=== PATIENT | male | born 2000 | race Caucasian/White ===

== ENCOUNTER 2021-05-03 17:47 | Emergency (ER) | payer OTHER, SELFPAY ==
[2021-05-03 17:56] VITALS: BP 139/76; PULSE 93; RESP 18; TEMP 36.7; O2SAT 97
--- NOTE | 2021-05-03 18:18 | W.ED.GENAD ---
Discharge Plan Disposition Patient Disposition: HOME Condition: Stable Discharge Details Clinical Impression: Rash Primary Care Provider: Unknown,Unknown ED Provider: Clifford Fallon Home Meds and New Rx's Prescriptions: No Action No Known Home Meds RF: 0 Discharge Instructions Instructions: Acute Rash (ED) Additional Instructions: Your rash does not look infectious and is very localized. As we discussed you drove yourself here and I do not want to give you Benadryl which may cause drowsiness. I recommend after you are discharged from the ER, going to the pharmacy and picking up [id number] Benadryl and 1% hydrocortisone cream taking as directed. Please watch for new or worsening symptoms and return to the ER for any concerns. If symptoms were to persist or worsen, oral steroids may eventually be indicated. Discharge Data Discharge Date/Time-TO BE ENTERED AT DEPARTURE: 05/03/21 18:33 Medical Decision Making 21-year-old gentleman presents with a rash to his left forearm after being outside all day. Clinically he appears well, nontoxic. He has not taken any medication for his symptoms. Appears to be a mild local nonspecific contact dermatitis. No signs of infection. Patient drove himself here to the ER today. Recommend that he takes Benadryl once he gets home, 50 mg, will not provide a dose now given he drove and this may cause drowsiness. Also recommended 1% [id number] hydrocortisone cream. Discussed that if symptoms are worsening over the next couple of days with [id number] medications and oral steroids may be indicated. Patient is agreeable with this plan and has no additional questions or concerns. Standard discharge and return precautions This documentation was generated using [employer] dictation system, please disregard any oddities of phrase or misspellings. HPI General Mode of arrival: ambulatory. Date/Time Provider Initiated Documentation: 05/03/21 17:59. Limitations to Documentation: no limitations. Information obtained by: patient. HPI Narrative: This is a 21-year-old male, no significant past sickle history, presenting to the ER complaining of a rash on his left forearm. Patient states that he was outside most of the day in the sun and did get a sunburn to his bilateral upper extremities. He then noticed a slightly itchy rash to his left forearm which appears unrelated to his sunburn. It is slightly raised, itchy. Denies rash elsewhere in his body. States that he was outside and could have come in contact with a plant but is unsure of any direct exposure. Has not taken any medication for his symptoms. Has no additional questions or concerns. Related Data Home Medications Medication Instructions Recorded Confirmed Unknown [No Known Home Meds] 05/03/21 05/03/21 Allergies Allergy/AdvReac Type Severity Reaction Status Date / Time No Known Allergies Allergy Unverified 05/03/21 17:58 General Stated Complaint: RashLesion LULY: 4 Review of Systems Constitutional Constitutional: Denies fever(s) and Denies weakness ENT Ears, Nose, Mouth, and Throat: Denies throat swelling and Denies tongue swelling Respiratory Respiratory: Denies wheezing Musculoskeletal Musculoskeletal: Denies tingling Integumentary/Breasts Skin/Breast: Reports rash Neurologic Neurologic: Denies tingling and Denies weakness Allergic/Immunologic Allergic/Immunologic: Denies throat swelling, Denies tongue swelling and Denies wheezing [facility] Medical History No active medical problems Surgical History No history of previous surgery Social History Smoking/Tobacco Use Status: Never Smoking risk assessment performed?: Yes Alcohol Intake: never Substance use type: does not use Exam Const General: cooperative, healthy appearing, comfortable and no acute distress Orientation: alert and awake [facility] Head: normal to inspection, normocephalic and atraumatic Face and sinus: normal facial exam Mouth: moist mucous membranes Eyes General: appearance normal, both eyes and all related structures Conjunctivae: conjunctivae normal Neck Neck: normal visual inspection, trachea midline and supple Resp Effort & Inspection: normal respiratory effort and able to speak in complete sentences Auscultation: clear to auscultation bilaterally Cardio Rate: regular rate Rhythm: regular rhythm GI Inspection: normal to inspection Skin Other: Bilateral upper extremities up to his T-shirt sleeve line appears to be first-degree burn consistent with a sunburn. Along his left forearm there is a scant, patchy, erythematous, slightly papular rash. Areas of excoriation. There is no drainage, weepage, tenderness, signs of infection. Neuro, vascular, tendon intact Neuro General: patient alert, patient awake, moves all extremities and no focal motor deficits Cognition: normal cognition Speech: speech normal Gait: normal gait Sensory Exam: no sensory deficits noted Psych Appearance: grossly normal Mental Status: mental status grossly normal Course Vital Signs Vital signs: Vital Signs Temperature 36.7 C 05/03/21 17:56 Pulse 93 H 05/03/21 17:56 Respiratory Rate 18 05/03/21 17:56 Blood Pressure 139/76 05/03/21 17:56 Pulse Oximetry 97 05/03/21 17:56 Temperature 36.7 C 05/03/21 17:56 Temperature Source Skin 05/03/21 17:56 Pulse 93 H 05/03/21 17:56 Respiratory Rate 18 05/03/21 17:56 Respiratory Effort Non-Labored 05/03/21 17:59 Blood Pressure 139/76 05/03/21 17:56 Blood Pressure Position Sitting 05/03/21 17:56 Pulse Oximetry 97 05/03/21 17:56 Oxygen Delivery Method Room Air 05/03/21 17:56 Oxygen Flow Rate 0 05/03/21 17:56 Pain Level 0 05/03/21 17:56
[2021-05-03 18:27] VITALS: BP 130/78; PULSE 88; RESP 18; TEMP 37; O2SAT 97
== END 2021-05-03 18:33 | disposition home or self-care (01) ==
PROVIDERS: Emergency Provider Physician Assistant
DX: R21 Rash and other nonspecific skin eruption (principal)
CPT/HCPCS: 99281; 99282